=== PATIENT | male | born 1990 | race Caucasian/White ===

== ENCOUNTER 2019-05-22 15:50 | Emergency (ER) | payer BC ==
--- NOTE | 2019-05-22 16:00 | EDM.PDOC ---
ED HPI GENERAL MEDICAL PROBLEM - General Chief Complaint: Upper Extremity Injury/Pain Stated Complaint: PT INJURED R ELBOW AT HOME Time Seen by Provider: 05/22/19 15:52 Source of Information: Reports: Patient History Limitations: Reports: No Limitations - History of Present Illness INITIAL COMMENTS - FREE TEXT/NARRATIVE: HISTORY AND PHYSICAL: History of present illness: Patient is a 28-year-old male who presents to the emergency room with complaints of right elbow pain. He states he was pulling on a wrench that had "a lot of torque buildup" and as it was unwinding it hit him in the right elbow. Patient has pain, small laceration and soft tissue swelling at the site. He denies any other extremity involvement. Denies hitting his head or having any loss of consciousness. Offers no systemic complaints. Review of systems: As per history of present illness and below otherwise all systems reviewed and negative. Past medical history: As per history of present illness and as reviewed below otherwise noncontributory. Surgical history: As per history of present illness and as reviewed below otherwise noncontributory. Social history: See social history for further information Family history: As per history of present illness and as reviewed below otherwise noncontributory. Physical exam: General: Well-developed and well-nourished 28-year-old male. Alert and oriented. Nontoxic-appearing and in no acute distress. HEENT: Atraumatic, normocephalic, pupils equal and reactive bilaterally, negative for conjunctival pallor or scleral icterus, mucous membranes moist, neck supple, nontender, trachea midline. No drooling or trismus noted. No meningeal signs. No hot potato voice noted. Lungs: Clear to auscultation, breath sounds equal bilaterally, chest nontender. Heart: S1S2, regular rate and rhythm without overt murmur Abdomen: Soft, nondistended, nontender. Skin: 0.75cm laceration to lateral right elbow with soft tissue swelling. Otherwise skin is intact, warm, dry. No lesions or rashes noted. Extremities: Soft tissue swelling of left elbow; see SKIN. Pain with palpation of the left elbow but otherwise moves all extremities per self without difficulty or deficits. Strong radial pulses with cap refill less than 3 seconds. Neurovascular unremarkable. Neuro: Awake, alert, oriented. Cranial nerves II through XII unremarkable. Cerebellum unremarkable. Motor and sensory unremarkable throughout. Exam nonfocal. Notes: Area was thoroughly cleansed with chlorhexidine. Usual and customary procedures were followed for suture placement. 1% lidocaine was used to anesthetize the area. 4-0 nylon, #2 interrupted sutures were placed. Patient tolerated well. X-ray shows a calcification posterior to the olecranon process which appears old. No acute findings. Will place patient in sling for comfort due to the right elbow contusion. Supportive care measures were reviewed and discussed. Voices understanding and is agreeable to plan of care. Denies any further questions or concerns at this time. Diagnostics: X-ray Therapeutics: Sling Prescription: None Impression: Right elbow contusion Laceration Plan: 1. Rest, ice, elevate the affected extremity. Please wear the sling as directed. To need to monitor the laceration site for signs of infection. Gently cleanse the area twice daily with mild soap and water. Sutures to be removed in 7 to 10 days. 2. Tylenol and/or Ibuprofen as needed for pain management. 3. Follow up with the Orthopedic provider as we discussed. Return to the ED as needed and as discussed. Definitive disposition and diagnosis as appropriate pending reevaluation and review of above. right elbow Pain Score (Numeric/FACES): 5 - Related Data Allergies Allergy/AdvReac Type Severity Reaction Status Date / Time peanut Allergy Burning Verified 06/04/13 20:21 Home Meds: Home Meds . [No Known Home Meds] 05/22/19 [History] Review of Systems - Review of Systems Review Of Systems: Comprehensive ROS is negative, except as noted in HPI. ED EXAM, GENERAL - Physical Exam Exam: See Below (See dictation) ED TRAUMA EXTREMITY PROCEDURES - Laceration/Wound Repair Right elbow Lac/Wound Length In cm: 0.7 Appearance: Subcutaneous, Linear, Clean Distal NVT: Neuro & Vascular Intact, No Tendon Injury Anesthetic Type: Local Local Anesthesia - Lidocaine (Xylocaine): 1% Plain Local Anesthetic Volume: 2cc Skin Prep: Chlorhexidine (Hibiciens), Saline Saline Irrigation (cc's): 50 Exploration/Debridement/Repair: Wound Explored, In a Bloodless Field, Explored to Base, No Foreign Material Found Closed With: Sutures Suture Size: 4-0 # of Sutures: 2 Suture Type: Nylon, Interrupted, Simple Drain Placement: No Sterile Dressing Applied: Provider Tetanus Status Addressed: Yes Complications: No Course - Vital Signs Last Recorded V/S: Last Vital Signs Temp 98.3 F 05/22/19 16:09 Pulse 93 05/22/19 16:09 Resp 15 05/22/19 16:09 BP 130/78 05/22/19 16:09 Pulse Ox 99 05/22/19 16:09 - Orders/Labs/Meds Orders: Active Orders 24 hr Category Date Time Status Vaccines to be Administered [RC] PER UNIT ROUTINE Care 05/22/19 16:05 Active DME for Discharge [COMM] Stat Oth 05/22/19 16:49 Ordered Meds: Medications Discontinued Medications Generic Name Dose Route Start Last Admin Trade Name Freq PRN Reason Stop Dose Admin Bacitracin 1 dose 05/22/19 16:05 05/22/19 16:52 Bacitracin Oint 1 Gm TOP 05/22/19 16:06 1 dose ONETIME ONE Administration Diphtheria/Tetanus/Acell Pertussis 0.5 ml 05/22/19 16:04 05/22/19 16:27 Adacel IM 05/22/19 16:05 0.5 ml .ONCE ONE Administration Lidocaine HCl 2 ml 05/22/19 16:05 05/22/19 16:52 Xylocaine-Mpf 1% INJECT 05/22/19 16:06 2 ml ONETIME ONE Administration Departure - Departure Time of Disposition: 16:56 Disposition: Home, Self-Care 01 Clinical Impression: Laceration Contusion of right elbow Qualifiers: Encounter type: initial encounter Qualified Code(s): S50.01XA - Contusion of right elbow, initial encounter - Discharge Information Referrals: PCP,None [Primary Care Provider] - Forms: ED Department Discharge Additional Instructions: The following information is given to patients seen in the emergency department who are being discharged to home. This information is to outline your options for follow-up care. We provide all patients seen in our emergency department with a follow-up referral. The need for follow-up, as well as the timing and circumstances, are variable depending upon the specifics of your emergency department visit. If you don't have a primary care physician on staff, we will provide you with a referral. We always advise you to contact your personal physician following an emergency department visit to inform them of the circumstance of the visit and for follow-up with them and/or the need for any referrals to a consulting specialist. The emergency department will also refer you to a specialist when appropriate. This referral assures that you have the opportunity for follow-up care with a specialist. All of these measure are taken in an effort to provide you with optimal care, which includes your follow-up. Under all circumstances we always encourage you to contact your private physician who remains a resource for coordinating your care. When calling for follow-up care, please make the office aware that this follow-up is from your recent emergency room visit. If for any reason you are refused follow-up, please contact the [facility] at and asked to speak to the emergency department charge nurse. [facility] [address] [place] [id number] [facility] [address] [place] [id number] 1. Rest, ice, elevate the affected extremity. Please wear the sling as directed. To need to monitor the laceration site for signs of infection. Gently cleanse the area twice daily with mild soap and water. Sutures to be removed in 7 to 10 days. 2. Tylenol and/or Ibuprofen as needed for pain management. 3. Follow up with the Orthopedic provider as we discussed. Return to the ED as needed and as discussed. Sepsis Event Note - Focused Exam Vital Signs: Vital Signs Temp Pulse Resp BP Pulse Ox 05/22/19 16:09 98.3 F 93 15 130/78 99 Date Exam was Performed: 05/22/19 Time Exam was Performed: 16:54 - My Orders Last 24 Hours: My Active Orders 05/22/19 16:05 Vaccines to be Administered [RC] PER UNIT ROUTINE 05/22/19 16:49 DME for Discharge [COMM] Stat - Assessment/Plan Last 24 Hours: My Active Orders 05/22/19 16:05 Vaccines to be Administered [RC] PER UNIT ROUTINE 05/22/19 16:49 DME for Discharge [COMM] Stat
[2019-05-22] MEDS ORDERED: Diphtheria,Pertussis(Acell),Tetanus Vaccine 0.5 ML Syringe IM ONE (16:04)
[2019-05-22] MEDS ORDERED: Lidocaine 1% PF 2 ML SDV INJECT ONE (16:05)
[2019-05-22] MEDS ORDERED: Bacitracin Oint 1 GM U/D Packet TOP ONE (16:05)
--- NOTE | 2019-05-22 16:35 | CR ---
Right elbow: 3 views of the right elbow were obtained. Small calcification is seen posterior to the olecranon process. This most likely is old. No joint effusion is seen. Other bony structures appear unremarkable. Impression: 1. Calcification posterior to the olecranon process as described above. 2. Right elbow study is otherwise unremarkable. Diagnostic code #2 Study was dictated in MDT
== END 2019-05-22 17:15 | disposition home or self-care (01) ==
LOC: MW.ED 15:50
DX: S51.011A Laceration without foreign body of right elbow, initial encounter (principal); S50.01XA Contusion of right elbow, initial encounter; Z91.010 Allergy to peanuts; Z23 Encounter for immunization; W26.9XXA Contact with unspecified sharp object(s), initial encounter
CPT/HCPCS: 12001; 73080; 90471; 90715; 99283; J2001